=== PATIENT | male | born 1965 | race African-American/Black ===

== ENCOUNTER 2016-05-05 11:26 | Emergency (ER) | payer OTHER ==
[~2016-05-05] VITALS: Ht 172.7 cm; Wt 81.8 kg
[~2016-05-05 11:26] MED LIST: LISI-622 PO; METF500T4 PO
[2016-05-05 11:43] LABS: GLUCOSE,POINT OF CARE 212 MG/DL (70-110)
[2016-05-05] MEDS ORDERED: KETOROLAC TROMETHAMINE 60 MG/2 ML VIAL IM ONE (12:30)
[2016-05-05] MEDS ORDERED: BACITRACIN 0.9 GM PACKET OINTMENT TP ONE (12:30)
[2016-05-05] MEDS ORDERED: METHOCARBAMOL 500 MG TABLET PO ONE (12:30)
[2016-05-05 13:46] VITALS: BP 176/108
== END 2016-05-05 13:58 | disposition home or self-care (01) ==
LOC: EMS 11:28
DX: S80.01XA Contusion of right knee, initial encounter (principal); S40.011A Contusion of right shoulder, initial encounter; E11.9 Type 2 diabetes mellitus without complications; E78.00 Pure hypercholesterolemia, unspecified; I10 Essential (primary) hypertension; F17.210 Nicotine dependence, cigarettes, uncomplicated; V19.9XXA Pedal cyclist (driver) (passenger) injured in unspecified traffic accident, initial encounter; Y93.55 Activity, bike riding; Y92.89 Other specified places as the place of occurrence of the external cause; Y99.8 Other external cause status
CPT/HCPCS: 29105; 73030; 82962; 96372; 99284; J1885

== ENCOUNTER 2021-10-17 23:05 | Emergency (ER) | payer OTHER ==
[~2021-10-17] VITALS: Ht 177.8 cm; Wt 64.0 kg
[~2021-10-17 23:05] MED LIST changes: -LISI-622 PO; +LISI5TAB21 PO; +METF-444 PO; -METF500T4 PO
[2021-10-18 00:01] LABS: BASOPHILS % (AUTO) 0.5 % (0.0-2.0); EOSINOPHILS % (AUTO) 2.1 % (1.0-6.0); HEMATOCRIT 42.6 % (41-53); HEMOGLOBIN 14.3 g/dL (13.5-17.5); LYMPHOCYTES # (AUTO) 1.5 K/uL (1.0-4.8); LYMPHOCYTES % (AUTO) 23.8 % (22.0-44.0); MEAN CORPUSCULAR HEMOGLOBIN 30.4 pg (26.0-34.0); MEAN CORPUSCULAR HGB CONC 33.6 G/dL (31.0-37.0); MEAN CORPUSCULAR VOLUME 91 fL (80-100); MONOCYTES # (AUTO) 0.8 K/uL (0.1-1.0); MONOCYTES % (AUTO) 12.1 % (2.0-9.0); NEUTROPHILS % (AUTO) 61.5 % (40.0-70.0); PLATELET COUNT (AUTO) 184 K/uL (150-450); RED BLOOD CELL COUNT(AUTO) 4.71 MIL/uL (4.50-5.90); RED CELL DISTRIBUTION WIDTH 14.4 % (11.5-14.5)
[2021-10-18 00:09] LABS: ANION GAP 7 mmol/L (8-16); CALCIUM, TOTAL 8.5 mg/dL (8.8-10.5); CARBON DIOXIDE 28 mmol/L (22-29); CHLORIDE 104 mmol/L (98-107); GLUCOSE,RANDOM 285 mg/dL (70-110); POTASSIUM 3.6 mmol/L (3.5-5.1); SODIUM SERUM 139 mmol/L (136-145); UREA NITROGEN, BLOOD 17 mg/dL (7-18)
[2021-10-18 00:16] LABS: ALANINE AMINOTRANSFERASE 16 U/L (12-78); ALBUMIN 3.1 g/dL (3.4-5.0); ALKALINE PHOSPHATASE 157 U/L (46-116); ASPARTATE AMINOTRANSFERASE 11 U/L (15-37); BILIRUBIN,TOTAL 0.2 mg/dL (0.1-1.0); GLOMERULAR FILTR. RATE CALC > 60 mL/min (>60); LIPASE 68 U/L (73-393); TOTAL PROTEIN, SERUM 6.6 g/dL (6.4-8.2)
[2021-10-18] MEDS ORDERED: ONDANSETRON HCL 4 MG TABLET PO ONE (01:15)
[2021-10-18] MEDS ORDERED: ACETAMINOPHEN 500 MG TABLET PO ONE (01:15)
[2021-10-18] MEDS ORDERED: FAMOTIDINE 20 MG TABLET PO ONE (01:15)
[2021-10-18] MEDS ORDERED: MAG HYDROX/AL HYDROX/SIMETH 30 ML SUSP UDCUP PO ONE (01:15)
[2021-10-18] MEDS ORDERED: SODIUM CHLORIDE 0.9% 1,000 ML IV ONE (02:30)
[2021-10-18] MEDS ORDERED: SODIUM CHLORIDE 0.9% 100 ML ONE (02:51)
[2021-10-18] MEDS ORDERED: IOHEXOL 350 MG/ML 100 ML VIAL ONE (02:51)
[2021-10-18 03:35] LABS: COVID AG,FIA SOURCE NASOPHARYNGEAL
[2021-10-18] MEDS ORDERED: AMOX1TAB16 PO (10:08)
[2021-10-18 10:25] VITALS: BP 161/99
== END 2021-10-18 10:30 | disposition home or self-care (01) ==
LOC: EMS 23:05
DX: K52.9 Noninfective gastroenteritis and colitis, unspecified (principal); R10.32 Left lower quadrant pain; R10.31 Right lower quadrant pain; Z20.822 Contact with and (suspected) exposure to COVID-19
CPT/HCPCS: 99285; 87426; 80053; 83690; 83735; 84100; 85025; 36415; 93005; 74177; 96360; Q0162; Q9967; J7050

== ENCOUNTER 2022-09-08 20:06 | Emergency (ER) | payer OTHER ==
[~2022-09-08] VITALS: Ht 172.7 cm; Wt 72.0 kg
[~2022-09-08 20:06] MED LIST changes: +LABE200T56 PO; +LISI-894 PO; -LISI5TAB21 PO; +METF-1211 PO; -METF-444 PO; +NIFE-40 PO
[2022-09-08 20:22] VITALS: TEMP 98.1
[2022-09-08 20:48] LABS: BASOPHILS % (AUTO) 1.1 % (0.0-2.0); EOSINOPHILS % (AUTO) 4.8 % (1.0-6.0); HEMATOCRIT 44.7 % (41-53); HEMOGLOBIN 14.9 g/dL (13.5-17.5); LYMPHOCYTES # (AUTO) 1.9 K/uL (1.0-4.8); LYMPHOCYTES % (AUTO) 35.7 % (22.0-44.0); MEAN CORPUSCULAR HEMOGLOBIN 30.6 pg (26.0-34.0); MEAN CORPUSCULAR HGB CONC 33.4 G/dL (31.0-37.0); MEAN CORPUSCULAR VOLUME 92 fL (80-100); MONOCYTES # (AUTO) 0.4 K/uL (0.1-1.0); MONOCYTES % (AUTO) 7.1 % (2.0-9.0); NEUTROPHILS # (AUTO) 2.7 K/uL (1.8-7.7); NEUTROPHILS % (AUTO) 51.3 % (40.0-70.0); PLATELET COUNT (AUTO) 185 K/uL (150-450); RED BLOOD CELL COUNT(AUTO) 4.87 MIL/uL (4.50-5.90); RED CELL DISTRIBUTION WIDTH 14.1 % (11.5-14.5)
[2022-09-08 20:52] LABS: APPEARANCE,URINE CLEAR (CLEAR); BILIRUBIN,URINE NEGATIVE (NEGATIVE); GLUCOSE, URINE (UA) >=1000 mg/dL (NEGATIVE); KETONES,URINE NEGATIVE (NEGATIVE); LEUKOCYTE ESTERASE ,URINE NEGATIVE (NEGATIVE); NITRATE,URINE NEGATIVE (NEGATIVE); OCCULT BLOOD,URINE LARGE (NEGATIVE); PH,URINE 5.5 (5.0-8.0); PROTEIN,URINE 30-70 mg/dL (NEGATIVE); SPECIFIC GRAVITIY, URINE 1.025 (1.003-1.030); UROBILINOGEN,URINE <=1.0 mg/dL (<=1.0)
[2022-09-08 20:56] LABS: CALCIUM, TOTAL 8.8 mg/dL (8.8-10.5); CREATININE 1.5 mg/dL (0.60-1.30); POTASSIUM 3.8 mmol/L (3.5-5.1)
[2022-09-08 21:21] LABS: BACTERIA,URINE None Seen /HPF (None Seen); SQUAMOUS EPITHELIAL CELL,UR None Seen /LPF (None Seen); WBC,URINE None Seen /HPF (0-5)
[2022-09-09 00:40] VITALS: BP 211/132; PULSE 76; RESP 16
== END 2022-09-09 01:42 | disposition left against medical advice (07) ==
LOC: EMS 20:07
DX: R31.9 Hematuria, unspecified (principal); I16.1 Hypertensive emergency; E11.9 Type 2 diabetes mellitus without complications; E78.00 Pure hypercholesterolemia, unspecified; I10 Essential (primary) hypertension; Z87.891 Personal history of nicotine dependence
CPT/HCPCS: 80048; 81001; 85025; 99283

== ENCOUNTER 2024-02-14 20:49 | Inpatient (IN) | payer MEDICARE, OTHER ==
[~2024-02-14] VITALS: Ht 172.7 cm; Wt 74.0 kg
[~2024-02-14 20:49] MED LIST changes: +AMLO-258 PO; +HYDR25TA84 PO; -LABE200T56 PO; -LISI-894 PO; -METF-1211 PO; -NIFE-40 PO
[2024-02-14 21:14] LABS: BASOPHILS % (AUTO) 0.6 % (0.0-2.0); EOSINOPHILS % (AUTO) 2.2 % (1.0-6.0); HEMATOCRIT 41.6 % (41-53); HEMOGLOBIN 13.3 g/dL (13.5-17.5); LYMPHOCYTES # (AUTO) 2.2 K/uL (1.0-4.8); LYMPHOCYTES % (AUTO) 18.4 % (22.0-44.0); MEAN CORPUSCULAR VOLUME 94 fL (80-100); MONOCYTES # (AUTO) 0.8 K/uL (0.1-1.0); MONOCYTES % (AUTO) 6.8 % (2.0-9.0); NEUTROPHILS # (AUTO) 8.5 K/uL (1.8-7.7); PLATELET COUNT (AUTO) 211 K/uL (150-450); RED BLOOD CELL COUNT(AUTO) 4.44 MIL/uL (4.50-5.90); RED CELL DISTRIBUTION WIDTH 14.6 % (11.5-14.5); WHITE BLOOD COUNT (AUTO) 11.9 K/uL (4.5-11.0)
[2024-02-14 21:24] LABS: ANION GAP 5 mmol/L (8-16); CALCIUM, TOTAL 9.1 mg/dL (8.8-10.5); CARBON DIOXIDE 32 mmol/L (22-29); CHLORIDE 103 mmol/L (98-107); CREATININE 1.46 mg/dL (0.60-1.30); GLOMERULAR FILTR. RATE CALC 60 mL/min (>60); GLUCOSE,RANDOM 321 mg/dL (70-110); POTASSIUM 4.4 mmol/L (3.5-5.1); SODIUM SERUM 140 mmol/L (136-145); UREA NITROGEN, BLOOD 31 mg/dL (7-18)
[2024-02-14 21:33] LABS: ALCOHOL, BLOOD (SERUM) < 3 mg/dL (0-10)
[2024-02-15] MEDS: SODIUM CHLORIDE 0.9% 1,000 ML IV ONE ×2 (03:15→10:10)
[2024-02-15] MEDS: INSULIN REGULAR, HUMAN 100 UNITS/ML IVP ONE (03:25)
[2024-02-15 04:54] LABS: COVID AG,FIA SOURCE NASAL SWAB
[2024-02-15 05:00] LABS: ALANINE AMINOTRANSFERASE 55 U/L (12-78); ALBUMIN 3.2 g/dL (3.4-5.0); ALKALINE PHOSPHATASE 253 U/L (46-116); ASPARTATE AMINOTRANSFERASE 31 U/L (15-37); BILIRUBIN,TOTAL 0.3 mg/dL (0.1-1.0); LIPASE 40 U/L (16-77); TOTAL PROTEIN, SERUM 7.2 g/dL (6.4-8.2)
[2024-02-15 05:02] LABS: APPEARANCE,URINE CLEAR (CLEAR); BILIRUBIN,URINE NEGATIVE (NEGATIVE); COLOR,URINE LIGHT YELLOW (YELLOW); GLUCOSE, URINE (UA) 300-500 mg/dL (NEGATIVE); KETONES,URINE NEGATIVE (NEGATIVE); LEUKOCYTE ESTERASE ,URINE NEGATIVE (NEGATIVE); NITRATE,URINE NEGATIVE (NEGATIVE); OCCULT BLOOD,URINE SMALL (NEGATIVE); PH,URINE 5.5 (5.0-8.0); PH,URINE DRUG SCREEN 5.5 (5.0-8.0); PROTEIN,URINE 30-70 mg/dL (NEGATIVE); SPECIFIC GRAVITIY, URINE 1.016 (1.003-1.030); UROBILINOGEN,URINE <=1.0 mg/dL (<=1.0)
[2024-02-15 05:04] LABS: TROPONIN I-HIGH SENSITIVITY 10 ng/L (<76)
[2024-02-15 05:05] LABS: SARS-COV2 (COVID) ANTIGEN,FIA Negative (Negative)
[2024-02-15 05:07] LABS: LACTIC ACID 1.7 mmol/L (0.4-2.0)
[2024-02-15 05:10] LABS: ALCOHOL, URINE DRUG SCREEN NEGATIVE (NEGATIVE); AMPHET/METH SCREEN,URINE NEGATIVE (NEGATIVE); BARBITURATE SCREEN, URINE NEGATIVE (NEGATIVE); BENZODIAZEPINES SCREEN,URINE NEGATIVE (NEGATIVE); CANNABINOID SCREEN,URINE NEGATIVE (NEGATIVE); COCAINE SCREEN,URINE NEGATIVE (NEGATIVE); METHADONE SCREEN, URINE NEGATIVE (NEGATIVE); OPIATE SCREEN,URINE NEGATIVE (NEGATIVE); PHENCYCLIDINE SCREEN,URINE NEGATIVE (NEGATIVE)
[2024-02-15 05:12] LABS: BACTERIA,URINE None Seen /HPF (None Seen); RBC,URINE 0-2 /HPF (0-2); SQUAMOUS EPITHELIAL CELL,UR Few /LPF (None Seen); WBC,URINE None Seen /HPF (0-5)
[2024-02-15 05:24] LABS: AMMONIA < 10 umol/L (11-32)
[2024-02-15] MEDS ORDERED: ACETAMINOPHEN 325 MG TABLET PO PRN (06:45)
[2024-02-15] MEDS ORDERED: ONDANSETRON HCL 4 MG/2 ML VIAL IVP PRN (06:45)
[2024-02-15] MEDS ORDERED: ALBUTEROL SULFATE 2.5 MG/0.5 ML NEB SOLUTION NEB PRN (06:45)
[2024-02-15] MEDS ORDERED: IPRATROPIUM BROMIDE 0.5 MG/2.5 ML NEB SOLUTION NEB PRN (06:45)
[2024-02-15] MEDS: HEPARIN SODIUM,PORCINE 5,000 UNITS/ML VIAL SQ SCH (08:00)
[2024-02-15] MEDS: DOCUSATE SODIUM 100 MG CAPSULE PO SCH (09:00)
[2024-02-15] MEDS: INFLUENZA VIRUS VACCINE TVS (6MO+) 2024-25/PF 45 MCG/0.5 ML SYRINGE IM. ONE (12:41)
[2024-02-15 12:50] VITALS: BP 150/100; PULSE 77; RESP 18; TEMP 97.9; O2SAT 99
[2024-02-15 16:12] VITALS: PULSE 79; RESP 18
[2024-02-15 20:07] LABS: CREATININE,URINE RANDOM 86.2 mg/dL (30.0-125.0)
[2024-02-15 20:16] VITALS: BP 155/81; PULSE 81; RESP 18; TEMP 97.9; O2SAT 99
[2024-02-15] MEDS: DEXTROSE 5%-LACTATED RINGERS 1,000 ML IV SCH (20:35)
[2024-02-15] MEDS: PIPERACILLIN/TAZO 3.375 GM/D5W 50 ML IV SCH (20:37)
[2024-02-15] MEDS ORDERED: VALS160T2 PO (21:09)
[2024-02-15] MEDS ORDERED: LEVE-71 PO (21:09)
[2024-02-15] MEDS ORDERED: METO50 PO (21:09)
[2024-02-15] MEDS ORDERED: DEXTROSE 50%-WATER 25 GM/50 ML SYRINGE IVP PRN (21:15)
[2024-02-15] MEDS: LABETALOL HCL 5 MG/ML 20 ML VIAL IVP ONE (22:24)
[2024-02-15] MEDS: ATORVASTATIN CALCIUM 40 MG TABLET PO SCH (22:24)
[2024-02-15] MEDS: LevETIRAcetam 500 MG TABLET PO SCH (22:24)
[2024-02-15] MEDS: METOPROLOL TARTRATE 50 MG TABLET PO SCH (22:25)
[2024-02-15] MEDS: INSULIN GLARGINE,HUM.REC.ANLOG 100 UNITS/ML SQ SCH (22:27)
[2024-02-15] MEDS: INSULIN LISPRO 100 UNITS/ML SQ PRN (22:27)
[2024-02-15 22:45] LABS: GLUCOMETER DEV NAME(LOC) 5S.2D; GLUCOSE,POINT OF CARE 283 MG/DL (70-110)
[2024-02-15 23:54] VITALS: BP 152/99; PULSE 88; RESP 16; TEMP 97.7; O2SAT 99
[2024-02-16 05:30] VITALS: BP 128/82; PULSE 73; RESP 20; TEMP 97.8
[2024-02-16 07:33] LABS: BASOPHILS % (AUTO) 1.2 % (0.0-2.0); EOSINOPHILS % (AUTO) 5.8 % (1.0-6.0); HEMATOCRIT 39.2 % (41-53); HEMOGLOBIN 13.3 g/dL (13.5-17.5); LYMPHOCYTES # (AUTO) 1.9 K/uL (1.0-4.8); LYMPHOCYTES % (AUTO) 32.5 % (22.0-44.0); MEAN CORPUSCULAR VOLUME 94 fL (80-100); MONOCYTES # (AUTO) 0.6 K/uL (0.1-1.0); MONOCYTES % (AUTO) 9.2 % (2.0-9.0); NEUTROPHILS # (AUTO) 3.1 K/uL (1.8-7.7); NEUTROPHILS % (AUTO) 51.3 % (40.0-70.0); PLATELET COUNT (AUTO) 182 K/uL (150-450); RED BLOOD CELL COUNT(AUTO) 4.16 MIL/uL (4.50-5.90); RED CELL DISTRIBUTION WIDTH 14.5 % (11.5-14.5)
[2024-02-16 07:53] LABS: CARBON DIOXIDE 29 mmol/L (22-29); CHLORIDE 105 mmol/L (98-107); POTASSIUM 3.9 mmol/L (3.5-5.1); SODIUM SERUM 140 mmol/L (136-145)
[2024-02-16 07:54] LABS: ANION GAP 6 mmol/L (8-16); CALCIUM, TOTAL 8.5 mg/dL (8.8-10.5); CREATININE 1.01 mg/dL (0.60-1.30); GLOMERULAR FILTR. RATE CALC > 60 mL/min (>60); GLUCOSE,RANDOM 162 mg/dL (70-110); UREA NITROGEN, BLOOD 13 mg/dL (7-18)
[2024-02-16 07:56] VITALS: BP 140/80; PULSE 69; RESP 18; TEMP 97.8; O2SAT 98
[2024-02-16] MEDS: AmLODIPine BESYLATE 10 MG TABLET PO SCH (08:07)
[2024-02-16 09:06] LABS: GLUCOMETER DEV NAME(LOC) 5S.1D; GLUCOSE,POINT OF CARE 168 MG/DL (70-110)
[2024-02-16] MEDS ORDERED: LORazepam 2 MG/ML VIAL IVP PRN (10:30)
[2024-02-16 11:10] VITALS: BP 125/78; PULSE 72; RESP 18; TEMP 98; O2SAT 96
[2024-02-16] MEDS ORDERED: IOHEXOL 350 MG/ML 100 ML VIAL ONE (11:41)
[2024-02-16] MEDS ORDERED: SODIUM CHLORIDE 0.9% 100 ML ONE (11:41)
[2024-02-16 12:27] LABS: FREE T4 (FREE THYROXINE) 1.16 ng/dL (0.76-1.46); THYROID STIMULATING HORMONE 1.21 uIU/mL (0.36-3.74)
[2024-02-16 15:00] VITALS: BP 121/73; PULSE 70; RESP 19; TEMP 97.6; O2SAT 97
[2024-02-16] MEDS: HALOPERIDOL LACTATE 5 MG/ML VIAL IM PRN (16:19)
[2024-02-16] MEDS ORDERED: 0.9% SODIUM CHLORIDE 10 ML SYRINGE IVP ONE (16:56)
[2024-02-16] MEDS ORDERED: IOHEXOL 300 MG/ML 100 ML VIAL ONE (16:56)
[2024-02-16 20:20] VITALS: BP 138/83; PULSE 95; RESP 18; TEMP 97.9; O2SAT 99
[2024-02-16] MEDS: HydrALAZINE HCL 25 MG TABLET PO SCH (20:30)
[2024-02-16] MEDS: HEPARIN SODIUM,PORCINE 5,000 UNITS/ML VIAL SQ SCH (20:31)
[2024-02-16 21:31] LABS: GLUCOMETER DEV NAME(LOC) 5S.2D; GLUCOSE,POINT OF CARE 287 MG/DL (70-110)
[2024-02-16 23:51] VITALS: BP 143/95; PULSE 75; RESP 20; TEMP 97.4; O2SAT 99
[2024-02-17 05:20] VITALS: BP 151/93; PULSE 77; RESP 20; TEMP 97.4; O2SAT 100
[2024-02-17 07:41] LABS: GLUCOMETER DEV NAME(LOC) 5S.2D; GLUCOSE,POINT OF CARE 210 MG/DL (70-110)
[2024-02-17 07:48] VITALS: BP 120/77; PULSE 69; RESP 18; TEMP 98; O2SAT 99
[2024-02-17 11:07] VITALS: BP 140/85; PULSE 77; RESP 18; TEMP 98.4; O2SAT 100
[2024-02-17 16:54] VITALS: BP 148/82; PULSE 81; RESP 18; TEMP 97.8; O2SAT 99
[2024-02-17 19:11] LABS: GLUCOMETER DEV NAME(LOC) 5S.1D; GLUCOSE,POINT OF CARE 261 MG/DL (70-110)
[2024-02-17 19:11] LABS: GLUCOMETER DEV NAME(LOC) 5S.1D; GLUCOSE,POINT OF CARE 247 MG/DL (70-110)
[2024-02-17 20:06] VITALS: BP 141/80; PULSE 81; RESP 18; TEMP 98; O2SAT 100
[2024-02-17] MEDS: MELATONIN 5 MG TABLET PO PRN (20:31)
[2024-02-17 23:21] VITALS: BP 139/80; PULSE 78; RESP 18; TEMP 97.6; O2SAT 99
[2024-02-18] MEDS: LORazepam 1 MG TABLET PO PRN (00:10)
[2024-02-18 05:44] VITALS: BP 127/76; PULSE 74; RESP 18; TEMP 97.6; O2SAT 99
[2024-02-18 06:36] LABS: GLUCOMETER DEV NAME(LOC) 5N.2C; GLUCOSE,POINT OF CARE 183 MG/DL (70-110)
[2024-02-18 06:36] LABS: GLUCOMETER DEV NAME(LOC) 5N.2C; GLUCOSE,POINT OF CARE 301 MG/DL (70-110)
[2024-02-18 07:37] LABS: BASOPHILS % (AUTO) 1.3 % (0.0-2.0); HEMATOCRIT 37.3 % (41-53); HEMOGLOBIN 12.6 g/dL (13.5-17.5); LYMPHOCYTES # (AUTO) 2.4 K/uL (1.0-4.8); LYMPHOCYTES % (AUTO) 46.3 % (22.0-44.0); MEAN CORPUSCULAR HGB CONC 33.7 G/dL (31.0-37.0); MEAN CORPUSCULAR VOLUME 92 fL (80-100); MONOCYTES # (AUTO) 0.5 K/uL (0.1-1.0); MONOCYTES % (AUTO) 9.3 % (2.0-9.0); NEUTROPHILS # (AUTO) 1.9 K/uL (1.8-7.7); NEUTROPHILS % (AUTO) 37.1 % (40.0-70.0); PLATELET COUNT (AUTO) 208 K/uL (150-450); RED BLOOD CELL COUNT(AUTO) 4.06 MIL/uL (4.50-5.90); RED CELL DISTRIBUTION WIDTH 14.5 % (11.5-14.5); WHITE BLOOD COUNT (AUTO) 5.1 K/uL (4.5-11.0)
[2024-02-18 07:44] LABS: ANION GAP 6 mmol/L (8-16); CALCIUM, TOTAL 8.4 mg/dL (8.8-10.5); CARBON DIOXIDE 31 mmol/L (22-29); CHLORIDE 104 mmol/L (98-107); CREATININE 1.22 mg/dL (0.60-1.30); GLOMERULAR FILTR. RATE CALC > 60 mL/min (>60); GLUCOSE,RANDOM 153 mg/dL (70-110); POTASSIUM 4.2 mmol/L (3.5-5.1); SODIUM SERUM 141 mmol/L (136-145); UREA NITROGEN, BLOOD 15 mg/dL (7-18)
[2024-02-18 08:22] VITALS: BP 132/74; PULSE 76; RESP 18; TEMP 97.5; O2SAT 97
[2024-02-18] MEDS: MODAFINIL 100 MG TABLET PO SCH (09:22)
[2024-02-18] MEDS: DULoxetine HCL 20 MG CAPSULE PO SCH (09:23)
[2024-02-18 11:45] VITALS: BP 139/71; PULSE 63; RESP 18; TEMP 97.8; O2SAT 99
[2024-02-18 13:46] LABS: GLUCOMETER DEV NAME(LOC) 5N.2C; GLUCOSE,POINT OF CARE 144 MG/DL (70-110)
[2024-02-18 16:44] VITALS: BP 144/88; PULSE 74; RESP 18; TEMP 97.9; O2SAT 97
[2024-02-18 19:05] LABS: GLUCOMETER DEV NAME(LOC) 5N.2C; GLUCOSE,POINT OF CARE 257 MG/DL (70-110)
[2024-02-18 20:00] VITALS: BP 155/95; PULSE 79; RESP 19; TEMP 97.5; O2SAT 99
[2024-02-18 20:55] LABS: GLUCOMETER DEV NAME(LOC) 5S.1D; GLUCOSE,POINT OF CARE 231 MG/DL (70-110)
[2024-02-19 00:25] VITALS: BP 158/79; PULSE 77; RESP 19; TEMP 97.7; O2SAT 96
[2024-02-19 05:43] VITALS: BP 152/99; PULSE 70; RESP 19; TEMP 98.2; O2SAT 99
[2024-02-19 06:51] LABS: GLUCOMETER DEV NAME(LOC) 5S.1D; GLUCOSE,POINT OF CARE 174 MG/DL (70-110)
[2024-02-19 07:44] VITALS: BP 167/102; PULSE 71; RESP 18; TEMP 97.8; O2SAT 97
[2024-02-19 11:07] VITALS: BP 147/92; PULSE 63; RESP 19; TEMP 97.6; O2SAT 99
[2024-02-19 12:41] LABS: GLUCOMETER DEV NAME(LOC) 5S.1D; GLUCOSE,POINT OF CARE 185 MG/DL (70-110)
[2024-02-19] MEDS ORDERED: ATOR40TA71 PO (13:25)
[2024-02-19] MEDS ORDERED: DULO20CA71 PO (13:26)
[2024-02-19] MEDS ORDERED: HYDR25TA84 PO (13:26)
[2024-02-19] MEDS ORDERED: MODA100T65 PO (13:27)
[2024-02-19] MEDS ORDERED: INSLAN SQ (13:27)
[2024-02-19] MEDS ORDERED: ALBU2.5V39 NEB (13:28)
[2024-02-19] MEDS ORDERED: IPRA0.2S49 NEB (13:29)
[2024-02-19] MEDS ORDERED: INSU100V45 SQ (13:30)
[2024-02-19] MEDS ORDERED: LORA-1000 PO (13:31)
[2024-02-19 15:15] VITALS: BP 150/85; PULSE 69; RESP 18; TEMP 97.5; O2SAT 97
[2024-02-19] MEDS ORDERED: HydrALAZINE HCL 25 MG TABLET PO SCH (21:00)
== END 2024-02-19 17:00 | DRG 64 ==
LOC: EMS 20:49 → EDH 02-15 07:00 → 5S 02-15 10:03
PROVIDERS: ADMIT Internal Medicine; ATTEND Internal Medicine
DX: I61.0 Nontraumatic intracerebral hemorrhage in hemisphere, subcortical (principal); N17.0 Acute kidney failure with tubular necrosis; I16.1 Hypertensive emergency; F33.2 Major depressive disorder, recurrent severe without psychotic features; Z20.822 Contact with and (suspected) exposure to COVID-19; E11.9 Type 2 diabetes mellitus without complications; I10 Essential (primary) hypertension; E78.00 Pure hypercholesterolemia, unspecified; F14.90 Cocaine use, unspecified, uncomplicated; G40.909 Epilepsy, unspecified, not intractable, without status epilepticus; I69.320 Aphasia following cerebral infarction; Z79.899 Other long term (current) drug therapy; Z83.3 Family history of diabetes mellitus; Z63.9 Problem related to primary support group, unspecified; Z55.8 Other problems related to education and literacy; Z65.3 Problems related to other legal circumstances
CPT/HCPCS: 70450; 70551; 71045; 71250; 74177; 80048; 80076; 80307; 81001; 82140; 82570; 82607; 82962; 83605; 83690; 83735; 84300; 84439; 84443; 84484; 85025; 86592; 92610; 93306; 97116; 97163; 97166; 97530; 97535; 99285; G0378; G0480; J1630; J1644; J1815; J2543; J3490; J7030; J7050; Q9967; 36415-L1; 36415-TC

== ENCOUNTER 2024-05-20 21:11 | Inpatient (IN) | payer MEDICARE, OTHER ==
[~2024-05-20] VITALS: Ht 185.4 cm; Wt 95.0 kg
[~2024-05-20 21:11] MED LIST changes: +ALBU2.5V39 NEB; +ATOR40TA71 PO; +DULO20CA70 PO; +INSLAN SQ; +INSU100V45 SQ; +IPRA0.2S49 NEB; +LEVE-71 PO; +LORA1TAB25 PO; +METO50 PO; +MODA100T65 PO; +VALS160T2 PO
[2024-05-20 22:41] LABS: COVID AG,FIA SOURCE NASAL SWAB
[2024-05-20 22:46] LABS: BASOPHILS % (AUTO) 0.7 % (0.0-2.0); EOSINOPHILS % (AUTO) 0.4 % (1.0-6.0); HEMATOCRIT 48.9 % (41-53); HEMOGLOBIN 15.6 g/dL (13.5-17.5); LYMPHOCYTES # (AUTO) 1.6 K/uL (1.0-4.8); LYMPHOCYTES % (AUTO) 15.8 % (22.0-44.0); MEAN CORPUSCULAR HEMOGLOBIN 30.5 pg (26.0-34.0); MEAN CORPUSCULAR HGB CONC 31.9 G/dL (31.0-37.0); MEAN CORPUSCULAR VOLUME 96 fL (80-100); MONOCYTES # (AUTO) 0.5 K/uL (0.1-1.0); MONOCYTES % (AUTO) 4.6 % (2.0-9.0); NEUTROPHILS # (AUTO) 7.8 K/uL (1.8-7.7); NEUTROPHILS % (AUTO) 78.5 % (40.0-70.0); PLATELET COUNT (AUTO) 210 K/uL (150-450); RED BLOOD CELL COUNT(AUTO) 5.12 MIL/uL (4.50-5.90); RED CELL DISTRIBUTION WIDTH 14.6 % (11.5-14.5)
[2024-05-20] MEDS: SODIUM CHLORIDE 0.9% 1,000 ML IV ONE (22:48)
[2024-05-20 22:57] LABS: ACETONE,BLOOD NEGATIVE (NEGATIVE)
[2024-05-20 23:00] LABS: SARS-COV2 (COVID) ANTIGEN,FIA Negative (Negative)
[2024-05-20 23:03] LABS: ALCOHOL, BLOOD (SERUM) < 3 mg/dL (0-10)
[2024-05-20 23:04] LABS: ANION GAP 10 mmol/L (8-16); CALCIUM, TOTAL 9.6 mg/dL (8.8-10.5); CARBON DIOXIDE 30 mmol/L (22-29); CHLORIDE 118 mmol/L (98-107); CREATININE 2.19 mg/dL (0.60-1.30); GLOMERULAR FILTR. RATE CALC 37 mL/min (>60); LIPASE 55 U/L (16-77); POTASSIUM 4.8 mmol/L (3.5-5.1); SODIUM SERUM 158 mmol/L (136-145); TROPONIN I-HIGH SENSITIVITY 28 ng/L (<76); UREA NITROGEN, BLOOD 51 mg/dL (7-18)
[2024-05-20 23:09] LABS: GLUCOSE,RANDOM 508 mg/dL (70-110)
[2024-05-20 23:21] LABS: APPEARANCE,URINE CLEAR (CLEAR); BILIRUBIN,URINE NEGATIVE (NEGATIVE); COLOR,URINE YELLOW (YELLOW); GLUCOSE, URINE (UA) >=1000 mg/dL (NEGATIVE); KETONES,URINE TRACE mg/dL (NEGATIVE); LEUKOCYTE ESTERASE ,URINE NEGATIVE (NEGATIVE); NITRATE,URINE NEGATIVE (NEGATIVE); OCCULT BLOOD,URINE NEGATIVE (NEGATIVE); PROTEIN,URINE 30-70 mg/dL (NEGATIVE); SPECIFIC GRAVITIY, URINE 1.027 (1.003-1.030); UROBILINOGEN,URINE <=1.0 mg/dL (<=1.0)
[2024-05-20 23:45] LABS: BACTERIA,URINE None Seen /HPF (None Seen); RBC,URINE None Seen /HPF (0-2); SQUAMOUS EPITHELIAL CELL,UR Moderate /LPF (None Seen); WBC,URINE None Seen /HPF (0-5)
[2024-05-21] MEDS ORDERED: DEXTROSE 50%-WATER 25 GM/50 ML SYRINGE IVP PRN
[2024-05-21] MEDS: RINGERS SOLUTION,LACTATED 1,000 ML IV ONE
[2024-05-21] MEDS ORDERED: BISACODYL 10 MG RECTAL RECTAL SUPPOSITORY PR PRN
[2024-05-21] MEDS ORDERED: ONDANSETRON HCL 4 MG/2 ML VIAL IVP PRN
[2024-05-21] MEDS: INSULIN LISPRO 100 UNITS/ML SQ PRN (00:43)
[2024-05-21 01:30] VITALS: BP 137/87; PULSE 84; RESP 19; TEMP 97.6; O2SAT 95
[2024-05-21] MEDS: SODIUM CHLORIDE 0.45% 1,000 ML IV ONE (01:40)
[2024-05-21] MEDS: HEPARIN SODIUM,PORCINE 5,000 UNITS/ML VIAL SQ SCH (01:40)
[2024-05-21] MEDS: INSULIN GLARGINE,HUM.REC.ANLOG 100 UNITS/ML SQ SCH (02:42)
[2024-05-21 05:03] VITALS: BP 145/83; PULSE 77; RESP 18; TEMP 98.6; O2SAT 98
[2024-05-21 07:04] VITALS: BP 149/93; PULSE 78; RESP 20; TEMP 98.4; O2SAT 95
[2024-05-21] MEDS: PANTOPRAZOLE SODIUM 40 MG/VIAL IVP SCH (08:01)
[2024-05-21] MEDS: DOCUSATE SODIUM 100 MG CAPSULE PO SCH (08:02)
[2024-05-21] MEDS: LORazepam 2 MG/ML VIAL IVP PRN (08:10)
[2024-05-21 08:25] LABS: GLUCOMETER DEV NAME(LOC) 6N.1B; GLUCOSE,POINT OF CARE 355 MG/DL (70-110)
[2024-05-21 10:55] LABS: CREATININE 1.62 mg/dL (0.60-1.30); POTASSIUM 4.1 mmol/L (3.5-5.1)
[2024-05-21] MEDS: DEXTROSE 5%-WATER 1,000 ML IV SCH (11:25)
[2024-05-21 16:01] VITALS: BP 158/97; PULSE 96; RESP 19; TEMP 97.7; O2SAT 97
[2024-05-21 20:38] VITALS: BP 160/89; PULSE 102; RESP 20; TEMP 98.1; O2SAT 96
[2024-05-21 21:36] LABS: GLUCOMETER DEV NAME(LOC) 4E.2; GLUCOSE,POINT OF CARE 291 MG/DL (70-110)
[2024-05-21 21:36] LABS: GLUCOMETER DEV NAME(LOC) 4E.2; GLUCOSE,POINT OF CARE 290 MG/DL (70-110)
[2024-05-22] VITALS (8 sets, daily range): BP systolic 136–183; BP diastolic 87–107; PULSE 64–126; RESP 18–19; TEMP 97.5–98.6; O2SAT 96–100
[2024-05-22 05:55] LABS: GLUCOMETER DEV NAME(LOC) 6N.1B; GLUCOSE,POINT OF CARE 310 MG/DL (70-110)
[2024-05-22 05:55] LABS: GLUCOMETER DEV NAME(LOC) 6N.1B; GLUCOSE,POINT OF CARE 272 MG/DL (70-110)
[2024-05-22 07:00] LABS: GLUCOMETER DEV NAME(LOC) 5S.1D; GLUCOSE,POINT OF CARE 321 MG/DL (70-110)
[2024-05-22 07:45] LABS: ANION GAP 8 mmol/L (8-16); CALCIUM, TOTAL 9.3 mg/dL (8.8-10.5); CARBON DIOXIDE 27 mmol/L (22-29); CHLORIDE 123 mmol/L (98-107); CREATININE 1.36 mg/dL (0.60-1.30); GLOMERULAR FILTR. RATE CALC > 60 mL/min (>60); GLUCOSE,RANDOM 327 mg/dL (70-110); POTASSIUM 3.6 mmol/L (3.5-5.1); SODIUM SERUM 158 mmol/L (136-145); UREA NITROGEN, BLOOD 32 mg/dL (7-18)
[2024-05-22] MEDS: AmLODIPine BESYLATE 5 MG TABLET PO SCH (15:52)
[2024-05-22] MEDS: CARVEDILOL 6.25 MG TABLET PO SCH (15:52)
[2024-05-22 18:21] LABS: GLUCOMETER DEV NAME(LOC) 6N.1B; GLUCOSE,POINT OF CARE 369 MG/DL (70-110)
[2024-05-22 18:21] LABS: GLUCOMETER DEV NAME(LOC) 6N.1B; GLUCOSE,POINT OF CARE 236 MG/DL (70-110)
[2024-05-22] MEDS: ETHYL ALCOHOL 62% ANTISEPTIC NASAL SANITIZER 0.6 ML AMPUL NASAL SCH (20:45)
[2024-05-23 04:10] VITALS: BP 154/98; PULSE 114; RESP 18; TEMP 98.6; O2SAT 98
[2024-05-23 06:15] LABS: GLUCOMETER DEV NAME(LOC) 6N.1B; GLUCOSE,POINT OF CARE 324 MG/DL (70-110)
[2024-05-23 06:31] LABS: GLUCOMETER DEV NAME(LOC) 5S.1D; GLUCOSE,POINT OF CARE 292 MG/DL (70-110)
[2024-05-23 06:49] LABS: ANION GAP 9 mmol/L (8-16); CALCIUM, TOTAL 8.8 mg/dL (8.8-10.5); CARBON DIOXIDE 26 mmol/L (22-29); CHLORIDE 118 mmol/L (98-107); GLOMERULAR FILTR. RATE CALC > 60 mL/min (>60); GLUCOSE,RANDOM 327 mg/dL (70-110); POTASSIUM 4.2 mmol/L (3.5-5.1); SODIUM SERUM 153 mmol/L (136-145); UREA NITROGEN, BLOOD 27 mg/dL (7-18)
[2024-05-23 08:00] VITALS: BP 144/98; PULSE 119; RESP 19; TEMP 98.2; O2SAT 96
[2024-05-23 15:00] VITALS: BP 139/102; PULSE 118; RESP 18; TEMP 97.8; O2SAT 97
[2024-05-23 20:00] VITALS: BP 144/80; PULSE 120; RESP 18; TEMP 99.3; O2SAT 95
[2024-05-23] MEDS: CARVEDILOL 12.5 MG TABLET PO SCH (21:03)
[2024-05-23 21:55] LABS: GLUCOMETER DEV NAME(LOC) 6N.1B; GLUCOSE,POINT OF CARE 379 MG/DL (70-110)
[2024-05-23 23:40] VITALS: PULSE 110; RESP 20; O2SAT 96
[2024-05-24 04:15] VITALS: BP 134/79; PULSE 100; RESP 18; TEMP 98.8; O2SAT 96
[2024-05-24 07:52] VITALS: BP 142/78; PULSE 101; RESP 18; TEMP 98; O2SAT 97
[2024-05-24 09:28] LABS: BASOPHILS % (AUTO) 0.5 % (0.0-2.0); EOSINOPHILS % (AUTO) 2.9 % (1.0-6.0); HEMATOCRIT 40.2 % (41-53); LYMPHOCYTES # (AUTO) 1.5 K/uL (1.0-4.8); LYMPHOCYTES % (AUTO) 23.1 % (22.0-44.0); MEAN CORPUSCULAR HEMOGLOBIN 30.4 pg (26.0-34.0); MEAN CORPUSCULAR HGB CONC 32.3 G/dL (31.0-37.0); MEAN CORPUSCULAR VOLUME 94 fL (80-100); MONOCYTES # (AUTO) 0.3 K/uL (0.1-1.0); MONOCYTES % (AUTO) 4.5 % (2.0-9.0); NEUTROPHILS # (AUTO) 4.5 K/uL (1.8-7.7); PLATELET COUNT (AUTO) 131 K/uL (150-450); RED BLOOD CELL COUNT(AUTO) 4.28 MIL/uL (4.50-5.90); WHITE BLOOD COUNT (AUTO) 6.6 K/uL (4.5-11.0)
[2024-05-24 09:37] LABS: ANION GAP 4 mmol/L (8-16); CALCIUM, TOTAL 8.4 mg/dL (8.8-10.5); CARBON DIOXIDE 29 mmol/L (22-29); CHLORIDE 111 mmol/L (98-107); CREATININE 1.24 mg/dL (0.60-1.30); GLOMERULAR FILTR. RATE CALC > 60 mL/min (>60); GLUCOSE,RANDOM 354 mg/dL (70-110); SODIUM SERUM 144 mmol/L (136-145); UREA NITROGEN, BLOOD 21 mg/dL (7-18)
[2024-05-24 11:01] LABS: GLUCOMETER DEV NAME(LOC) 6N.1B; GLUCOSE,POINT OF CARE 294 MG/DL (70-110)
[2024-05-24 15:51] LABS: GLUCOMETER DEV NAME(LOC) 6N.1B; GLUCOSE,POINT OF CARE 364 MG/DL (70-110)
[2024-05-24 16:00] VITALS: BP 134/86; PULSE 88; RESP 19; TEMP 98.2; O2SAT 97
[2024-05-24 18:21] LABS: GLUCOMETER DEV NAME(LOC) 5S.1D; GLUCOSE,POINT OF CARE 314 MG/DL (70-110)
[2024-05-24 19:19] VITALS: BP 129/78; PULSE 90; RESP 18; TEMP 98.4; O2SAT 95
[2024-05-24] MEDS: ACETAMINOPHEN 325 MG TABLET PO PRN (20:17)
[2024-05-25 00:11] LABS: GLUCOMETER DEV NAME(LOC) 4E.2; GLUCOSE,POINT OF CARE 309 MG/DL (70-110)
[2024-05-25 03:13] VITALS: BP 126/71; PULSE 78; RESP 18; TEMP 97.8; O2SAT 95
[2024-05-25 03:26] LABS: GLUCOMETER DEV NAME(LOC) 6N.1B; GLUCOSE,POINT OF CARE 356 MG/DL (70-110)
[2024-05-25 07:40] VITALS: BP 148/89; PULSE 88; RESP 20; TEMP 97.7; O2SAT 99
[2024-05-25 09:11] LABS: GLUCOMETER DEV NAME(LOC) 4E.2; GLUCOSE,POINT OF CARE 272 MG/DL (70-110)
[2024-05-25 09:55] LABS: BASOPHILS % (AUTO) 1.2 % (0.0-2.0); EOSINOPHILS % (AUTO) 2.9 % (1.0-6.0); HEMOGLOBIN 12.2 g/dL (13.5-17.5); LYMPHOCYTES # (AUTO) 1.2 K/uL (1.0-4.8); LYMPHOCYTES % (AUTO) 23.3 % (22.0-44.0); MEAN CORPUSCULAR HEMOGLOBIN 29.9 pg (26.0-34.0); MEAN CORPUSCULAR HGB CONC 32.2 G/dL (31.0-37.0); MEAN CORPUSCULAR VOLUME 93 fL (80-100); MONOCYTES # (AUTO) 0.3 K/uL (0.1-1.0); MONOCYTES % (AUTO) 5.3 % (2.0-9.0); NEUTROPHILS # (AUTO) 3.6 K/uL (1.8-7.7); NEUTROPHILS % (AUTO) 67.3 % (40.0-70.0); PLATELET COUNT (AUTO) 118 K/uL (150-450); RED CELL DISTRIBUTION WIDTH 13.9 % (11.5-14.5); WHITE BLOOD COUNT (AUTO) 5.4 K/uL (4.5-11.0)
[2024-05-25 10:42] LABS: ANION GAP 6 mmol/L (8-16); CALCIUM, TOTAL 8.4 mg/dL (8.8-10.5); CARBON DIOXIDE 30 mmol/L (22-29); CHLORIDE 107 mmol/L (98-107); CREATININE 1.11 mg/dL (0.60-1.30); GLOMERULAR FILTR. RATE CALC > 60 mL/min (>60); GLUCOSE,RANDOM 262 mg/dL (70-110); POTASSIUM 4.1 mmol/L (3.5-5.1); SODIUM SERUM 143 mmol/L (136-145); UREA NITROGEN, BLOOD 16 mg/dL (7-18)
[2024-05-25] MEDS: INSULIN LISPRO 100 UNITS/ML SQ ONE ×2 (17:54→19:12)
[2024-05-25 19:25] VITALS: BP 137/75; PULSE 104; RESP 18; TEMP 99; O2SAT 96
[2024-05-26 05:21] VITALS: BP 113/94; PULSE 108; RESP 18; TEMP 98.4; O2SAT 98
[2024-05-26 05:36] LABS: GLUCOMETER DEV NAME(LOC) 5S.1D; GLUCOSE,POINT OF CARE 232 MG/DL (70-110)
[2024-05-26 07:43] LABS: BASOPHILS % (AUTO) 0.9 % (0.0-2.0); EOSINOPHILS % (AUTO) 2.2 % (1.0-6.0); HEMATOCRIT 37.7 % (41-53); HEMOGLOBIN 12.2 g/dL (13.5-17.5); LYMPHOCYTES # (AUTO) 1.7 K/uL (1.0-4.8); LYMPHOCYTES % (AUTO) 26.2 % (22.0-44.0); MEAN CORPUSCULAR HEMOGLOBIN 30.2 pg (26.0-34.0); MEAN CORPUSCULAR HGB CONC 32.4 G/dL (31.0-37.0); MEAN CORPUSCULAR VOLUME 93 fL (80-100); MONOCYTES # (AUTO) 0.5 K/uL (0.1-1.0); MONOCYTES % (AUTO) 7.2 % (2.0-9.0); NEUTROPHILS # (AUTO) 4.1 K/uL (1.8-7.7); NEUTROPHILS % (AUTO) 63.5 % (40.0-70.0); PLATELET COUNT (AUTO) 137 K/uL (150-450); RED BLOOD CELL COUNT(AUTO) 4.04 MIL/uL (4.50-5.90); WHITE BLOOD COUNT (AUTO) 6.4 K/uL (4.5-11.0)
[2024-05-26 07:54] LABS: ANION GAP 6 mmol/L (8-16); CALCIUM, TOTAL 8.6 mg/dL (8.8-10.5); CARBON DIOXIDE 29 mmol/L (22-29); CHLORIDE 110 mmol/L (98-107); CREATININE 1.17 mg/dL (0.60-1.30); GLOMERULAR FILTR. RATE CALC > 60 mL/min (>60); GLUCOSE,RANDOM 239 mg/dL (70-110); POTASSIUM 4.2 mmol/L (3.5-5.1); SODIUM SERUM 145 mmol/L (136-145); UREA NITROGEN, BLOOD 17 mg/dL (7-18)
[2024-05-26 15:00] VITALS: BP 117/69; PULSE 90; RESP 18; TEMP 98.4; O2SAT 96
[2024-05-26] MEDS ORDERED: AMLO-257 PO (15:01)
[2024-05-26] MEDS ORDERED: INSLAN SQ (15:01)
[2024-05-26] MEDS ORDERED: SITA50 PO (15:01)
[2024-05-26] MEDS ORDERED: INSU100V45 SQ (15:01)
[2024-05-26] MEDS ORDERED: CARV12 PO (15:01)
[2024-05-26 19:56] VITALS: BP 118/61; PULSE 96; RESP 18; TEMP 98.8; O2SAT 96
[2024-05-26 20:21] LABS: GLUCOMETER DEV NAME(LOC) 6N.1B; GLUCOSE,POINT OF CARE 308 MG/DL (70-110)
[2024-05-26 20:21] LABS: GLUCOMETER DEV NAME(LOC) 6N.1B; GLUCOSE,POINT OF CARE > 600 MG/DL (70-110)
[2024-05-26 20:21] LABS: GLUCOMETER DEV NAME(LOC) 6N.1B; GLUCOSE,POINT OF CARE 294 MG/DL (70-110)
[2024-05-26 20:21] LABS: GLUCOMETER DEV NAME(LOC) 6N.1B; GLUCOSE,POINT OF CARE 539 MG/DL (70-110)
[2024-05-26] MEDS: INSULIN GLARGINE,HUM.REC.ANLOG 100 UNITS/ML SQ SCH (21:44)
[2024-05-27 05:00] VITALS: BP 143/76; PULSE 92; RESP 20; TEMP 98.2; O2SAT 95
[2024-05-27 07:06] VITALS: BP 140/72; PULSE 90; RESP 20; TEMP 98.4; O2SAT 97
[2024-05-27 12:35] LABS: GLUCOMETER DEV NAME(LOC) 5S.1D; GLUCOSE,POINT OF CARE 309 MG/DL (70-110)
[2024-05-27 15:07] VITALS: BP 138/84; PULSE 94; RESP 20; TEMP 98.7; O2SAT 98
[2024-05-27 17:20] LABS: GLUCOMETER DEV NAME(LOC) 4E.2; GLUCOSE,POINT OF CARE 437 MG/DL (70-110)
[2024-05-27 17:20] LABS: GLUCOMETER DEV NAME(LOC) 4E.2; GLUCOSE,POINT OF CARE 298 MG/DL (70-110)
[2024-05-27 17:21] LABS: GLUCOMETER DEV NAME(LOC) 4E.2; GLUCOSE,POINT OF CARE 308 MG/DL (70-110)
[2024-05-27 17:21] LABS: GLUCOMETER DEV NAME(LOC) 4E.2; GLUCOSE,POINT OF CARE 239 MG/DL (70-110)
[2024-05-27 18:51] LABS: GLUCOMETER DEV NAME(LOC) 4E.2; GLUCOSE,POINT OF CARE 209 MG/DL (70-110)
[2024-05-27 19:49] VITALS: BP 142/91; PULSE 91; RESP 20; TEMP 98.4; O2SAT 98
[2024-05-27] MEDS: SitaGLIPtin PHOSPHATE 50 MG TABLET PO SCH (20:45)
[2024-05-28 04:58] VITALS: BP 154/94; PULSE 82; RESP 20; TEMP 98.1; O2SAT 97
[2024-05-28 07:35] VITALS: BP 112/71; PULSE 85; RESP 18; TEMP 98; O2SAT 97
[2024-05-28 08:22] LABS: GLUCOMETER DEV NAME(LOC) 6N.1B; GLUCOSE,POINT OF CARE 311 MG/DL (70-110)
[2024-05-28 09:45] LABS: CANDIDA AURIS PCR,SURVEILLANCE Not Detected C(t) (Not Detectd)
[2024-05-28] MEDS ORDERED: SITA50 PO (11:26)
[2024-05-28] MEDS ORDERED: METF750T57 PO (11:26)
[2024-05-28 15:54] VITALS: BP 116/62; PULSE 85; RESP 18; TEMP 97.8; O2SAT 98
[2024-05-28] MEDS ORDERED: MetFORMIN HCL 750 MG ER TABLET PO SCH (17:30)
[2024-05-28 19:21] LABS: GLUCOMETER DEV NAME(LOC) 5S.1D; GLUCOSE,POINT OF CARE 233 MG/DL (70-110)
[2024-05-28 19:21] LABS: GLUCOMETER DEV NAME(LOC) 5S.1D; GLUCOSE,POINT OF CARE 295 MG/DL (70-110)
== END 2024-05-28 16:00 | disposition home health service (06) | DRG 682 ==
LOC: EMS 21:11 → EDH 23:49 → 4E 05-21 01:06
PROVIDERS: ADMIT Internal Medicine; ATTEND Internal Medicine
DX: N17.9 Acute kidney failure, unspecified (principal); G93.41 Metabolic encephalopathy; E87.0 Hyperosmolality and hypernatremia; G40.909 Epilepsy, unspecified, not intractable, without status epilepticus; E11.65 Type 2 diabetes mellitus with hyperglycemia; I10 Essential (primary) hypertension; F03.90 Unspecified dementia, unspecified severity, without behavioral disturbance, psychotic disturbance, mood disturbance, and anxiety; E78.00 Pure hypercholesterolemia, unspecified; R13.10 Dysphagia, unspecified; E86.0 Dehydration; Z79.4 Long term (current) use of insulin; Z86.73 Personal history of transient ischemic attack (TIA), and cerebral infarction without residual deficits; Z79.899 Other long term (current) drug therapy; Z79.84 Long term (current) use of oral hypoglycemic drugs; Z83.3 Family history of diabetes mellitus
CPT/HCPCS: 74230; 80048; 81001; 82009; 82947; 82962; 83036; 83690; 83735; 84100; 84484; 85025; 87081; 87481; 92610; 92611; 96360; 97116; 97163; 97530; 99285; G0378; G0480; J1644; J1815; J2060; J2470; J7060; J7120; 36415-L1; 36415-TC